=== PATIENT | male | born 1975 | race Caucasian/White ===

== ENCOUNTER 2018-06-30 10:39 | Emergency (ER) | payer MEDICAID, OTHER ==
[~2018-06-30] VITALS: Ht 165.1 cm; Wt 75.1 kg
[2018-06-30 11:03] VITALS: BP 117/69
--- NOTE | 2018-06-30 11:08 | NUR ---
PT AMBULATES TO BED 5
[2018-06-30] MEDS ORDERED: KETOROLAC 60 MG/2 ML VIAL IM ONE ×2 (11:15→11:29)
--- NOTE | 2018-06-30 11:17 | NUR ---
PT WITH C/O CHRONIC LOWER BACK PAIN FOR MONTHS; DENIES INJURYPATIENT STATES PAIN OF 8/10 AT THIS TIME; VSS; PATIENT POSITIONED FOR COMFORT; HOB ELEVATED; BEDRAILS UP X2; BED DOWN. ER MD MADE AWARE OF PT STATUS.
--- NOTE | 2018-06-30 11:51 | NUR ---
PT TAKEN TO XRAY VIA WHEELCHAIR
--- NOTE | 2018-06-30 11:59 | NUR ---
PT RETURNED FROM XRAY
--- NOTE | 2018-06-30 12:52 | NUR ---
Patient discharged with v/s stable. Written and verbal after care instructions given and explained. Patient alert, oriented and verbalized understanding of instructions. Ambulatory with steady gait. All questions addressed prior to discharge. ID band removed. Patient advised to follow up with PMD. Rx of MOTRIN, ROBAXIN, TRAMADOL given. Patient educated on indication of medication including possible reaction and side effects. Opportunity to ask questions provided and answered.
[2018-06-30 13:02] VITALS: BP 117/69
== END 2018-06-30 12:52 | disposition home or self-care (01) ==
LOC: MED 10:39
DX: M54.5 Low back pain (principal)
CPT/HCPCS: 72100; 96372; 99284; J1885; 81002

== ENCOUNTER 2020-08-01 15:26 | Emergency (ER) | payer OTHER ==
[~2020-08-01] VITALS: Ht 165.1 cm; Wt 72.2 kg
[2020-08-01 15:30] VITALS: BP 133/77
[2020-08-01] MEDS ORDERED: NACL 0.9% 1,000 ML IV ONE (15:45)
[2020-08-01] MEDS ORDERED: KETOROLAC 30 MG/ML VIAL IVP ONE (15:45)
[2020-08-01] MEDS ORDERED: DICYCLOMINE HCL LIQUID 20 MG, ALUMINUM HYD/MAG/SIMETHICONE 30 ML, LIDOCAINE VISCOUS 2% ... PO ONE ×3 (16:00)
[2020-08-01] MEDS ORDERED: DICYCLOMINE HCL LIQUID 10 MG/5 ML UDC ONE (16:07)
[2020-08-01] MEDS ORDERED: ALUMINUM HYD/MAG/SIMETHICONE 30 ML UDC ONE (16:07)
[2020-08-01] MEDS ORDERED: LIDOCAINE VISCOUS 2% 20 ML UDC ONE (16:07)
[2020-08-01 16:32] LABS: BASOPHILS % (AUTO) 0.2 % (0.0-2.0); EOSINOPHILS # (AUTO) 0.1 K/uL (0-0.4); EOSINOPHILS % (AUTO) 1.2 % (0.0-4.0); HEMATOCRIT 43.2 % (36-52); HEMOGLOBIN 14.6 g/dL (12.0-18.0); LYMPHOCYTES # (AUTO) 1.9 K/uL (2.0-11.5); LYMPHOCYTES % (AUTO) 17.3 % (20.5-51.1); MEAN CORPUSCULAR HEMOGLOBIN 29 pg (27-31); MEAN CORPUSCULAR HGB CONC 34 g/dL (33-37); MEAN CORPUSCULAR VOLUME 86.2 fL (80-94); MONOCYTES # (AUTO) 0.6 K/uL (0.8-1.0); MONOCYTES % (AUTO) 5.8 % (1.7-9.3); NEUTROPHILS # (AUTO) 8.4 K/uL (1.8-7.7); NEUTROPHILS % (AUTO) 75.5 % (42.2-75.2); PLATELET COUNT (AUTO) 243 K/uL (140-450); RED BLOOD CELL COUNT(AUTO) 5.01 MIL/uL (4.20-6.10); RED CELL DISTRIBUTION WIDTH 13.8 % (11.6-13.7); WHITE BLOOD COUNT (AUTO) 11.1 K/uL (4.8-10.8)
[2020-08-01 16:36] LABS: APPEARANCE,URINE CLEAR (CLEAR); BILIRUBIN,URINE NEGATIVE (NEGATIVE); BLOOD, URINE 1+ (NEGATIVE); COLOR,URINE YELLOW (YELLOW); LEUKOCYTE ESTERASE ,URINE NEGATIVE (NEGATIVE); NITRITE, URINE NEGATIVE (NEGATIVE); UGLUCOSE NEGATIVE (NEGATIVE)
[2020-08-01 17:03] LABS: ALBUMIN 4.2 g/dL (3.4-5.0); ANION GAP 15.3 (8-16); CARBON DIOXIDE 24.8 mmol/L (21-32); CREATININE 1.3 mg/dL (0.6-1.3); POTASSIUM 4.1 mmol/L (3.5-5.1)
[2020-08-01 17:18] LABS: RBC,URINE 0-5 /HPF (0-5); WBC,URINE 0-5 /HPF (0-5)
[2020-08-01 18:06] VITALS: BP 121/67
== END 2020-08-01 17:45 | disposition home or self-care (01) ==
LOC: MED 15:26
DX: K21.9 Gastro-esophageal reflux disease without esophagitis (principal); R10.13 Epigastric pain
CPT/HCPCS: 36415; 74176; 80053; 81001; 83690; 85025; 96361; 96374; 99284; J1885; J7030

== ENCOUNTER 2021-02-10 13:51 | Emergency (ER) | payer OTHER ==
[~2021-02-10] VITALS: Ht 165.1 cm; Wt 71.7 kg
[2021-02-10 13:56] VITALS: BP 140/80
--- NOTE | 2021-02-10 14:00 | NUR ---
45 Y/O MALE C/O ABDOMINAL PAIN 04/27. PT WAS DX WITH GASTRITIS X6 MONTHS AGO AND WANTS ULTRASOUND TO CONFIRM. PT DENIES ANY NAUSEA, VOMITING, DIARRHEA, CHEST PAIN, PAINFUL URINATION. PMH:GASTRITIS NKDA
--- NOTE | 2021-02-10 14:03 | NUR ---
[facility] AT BEDSIDE EVALUATING PT
[2021-02-10] MEDS ORDERED: DICYCLOMINE HCL LIQUID 20 MG, ALUMINUM HYD/MAG/SIMETHICONE 30 ML, LIDOCAINE VISCOUS 2% ... PO ONE ×3 (14:15)
[2021-02-10] MEDS ORDERED: LIDOCAINE VISCOUS 2% 20 ML UDC ONE (14:17)
[2021-02-10] MEDS ORDERED: DICYCLOMINE HCL LIQUID 10 MG/5 ML UDC ONE (14:17)
[2021-02-10] MEDS ORDERED: ALUMINUM HYD/MAG/SIMETHICONE 30 ML UDC ONE (14:17)
--- NOTE | 2021-02-10 14:25 | NUR ---
[facility] AT BEDSIDE
[2021-02-10 14:36] LABS: BASOPHILS % (AUTO) 0.3 % (0.0-2.0); EOSINOPHILS # (AUTO) 0.1 K/uL (0-0.4); EOSINOPHILS % (AUTO) 0.7 % (0.0-4.0); HEMATOCRIT 43.6 % (36-52); LYMPHOCYTES # (AUTO) 1.7 K/uL (2.0-11.5); LYMPHOCYTES % (AUTO) 19.6 % (20.5-51.1); MEAN CORPUSCULAR HEMOGLOBIN 30 pg (27-31); MEAN CORPUSCULAR HGB CONC 34 g/dL (33-37); MONOCYTES # (AUTO) 0.4 K/uL (0.8-1.0); MONOCYTES % (AUTO) 4.4 % (1.7-9.3); NEUTROPHILS # (AUTO) 6.4 K/uL (1.8-7.7); PLATELET COUNT (AUTO) 228 K/uL (140-450); RED BLOOD CELL COUNT(AUTO) 5.01 MIL/uL (4.20-6.10); RED CELL DISTRIBUTION WIDTH 13.3 % (11.6-13.7); WHITE BLOOD COUNT (AUTO) 8.5 K/uL (4.8-10.8)
[2021-02-10 15:12] LABS: ALBUMIN 4.2 g/dL (3.4-5.0); ANION GAP 14.5 (8-16); CARBON DIOXIDE 25.3 mmol/L (21-32); POTASSIUM 3.8 mmol/L (3.5-5.1); TOTAL BILIRUBIN 0.9 mg/dL (0.0-1.0)
[2021-02-10] MEDS ORDERED: OMEP20EC11 PO (15:16)
--- NOTE | 2021-02-10 15:32 | NUR ---
Patient discharged with v/s stable. Written and verbal after care instructions given and explained. Patient alert, oriented and verbalized understanding of instructions. Ambulatory with steady gait. All questions addressed prior to discharge. ID band removed. Patient advised to follow up with PMD. Rx of OMEPRAZOLE given. Patient educated on indication of medication including possible reaction and side effects. Opportunity to ask questions provided and answered.
[2021-02-10 15:33] VITALS: BP 140/80
== END 2021-02-10 15:32 | disposition home or self-care (01) ==
LOC: MED 13:51
DX: K29.70 Gastritis, unspecified, without bleeding (principal); K21.9 Gastro-esophageal reflux disease without esophagitis; Z79.899 Other long term (current) drug therapy
CPT/HCPCS: 36415; 80053; 81002; 83690; 85025; 99283

== ENCOUNTER 2021-10-15 09:08 | Day surgery (SDC) | payer OTHER, SELFPAY ==
[~2021-10-15] VITALS: Ht 162.6 cm; Wt 79.4 kg
[~2021-10-15 09:08] MED LIST: OMEP20EC11 PO
[2021-10-15] MEDS ORDERED: fentaNYL citrate 0.05 MG/ML VIAL IVP ONE (13:05)
[2021-10-15] MEDS ORDERED: MIDAZOLAM 2 MG/2 ML VIAL IVP ONE (13:05)
== END 2021-10-15 12:45 | disposition home or self-care (01) ==
LOC: MDS 09:08 → MMU 09:08 → MDS 12:45
PROVIDERS: ATTEND Internal Medicine Gastroenterology
DX: Z12.11 Encounter for screening for malignant neoplasm of colon (principal); D12.3 Benign neoplasm of transverse colon; R10.13 Epigastric pain; K92.0 Hematemesis; R14.0 Abdominal distension (gaseous); Z20.822 Contact with and (suspected) exposure to COVID-19

== ENCOUNTER 2023-07-11 09:57 | Emergency (ER) | payer OTHER ==
[~2023-07-11] VITALS: Ht 162.6 cm; Wt 72.6 kg
[2023-07-11 10:56] VITALS: BP 132/67; PULSE 86; RESP 18; TEMP 97; O2SAT 98
[2023-07-11] MEDS ORDERED: KETOROLAC 30 MG/ML VIAL IM ONE (12:15)
[2023-07-11] MEDS ORDERED: IBUP-2213 PO (13:42)
== END 2023-07-11 14:03 | disposition home or self-care (01) ==
LOC: MED 09:57
DX: S86.812A Strain of other muscle(s) and tendon(s) at lower leg level, left leg, initial encounter (principal); K21.9 Gastro-esophageal reflux disease without esophagitis; X58.XXXA Exposure to other specified factors, initial encounter; Y93.89 Activity, other specified; Y92.89 Other specified places as the place of occurrence of the external cause; Y99.8 Other external cause status
CPT/HCPCS: 73590; 96372; 99283; J1885